=== PATIENT | female | born 1965 | race Caucasian/White ===

== ENCOUNTER 2017-07-05 14:43 | Emergency (ER) | payer MEDICARE, MEDICAID ==
[~2017-07-05] VITALS: Ht 154.9 cm; Wt 47.6 kg
[~2017-07-05 14:43] MED LIST: ACET500C4 PO; ALBU8HFA4 INH; METR500T4; TERC45CR3
[2017-07-05] MEDS ORDERED: FLUTICASONE PROP 50 MCG SPRAY NS (15:05)
[2017-07-05] MEDS ORDERED: IBUPROFEN 800 MG TABLET PO (15:05)
[2017-07-05] MEDS ORDERED: IPRATROPIUM 0.06% SPRAY NS (15:05)
[2017-07-05] MEDS ORDERED: PANTOPRAZOLE SOD DR 40 MG TAB PO (15:05)
[2017-07-05] MEDS ORDERED: SYMBICORT 160-4.5 MCG INHALER IH (15:05)
[2017-07-05] MEDS ORDERED: BENZONATATE 100 MG CAPSULE PO ONE (15:30)
[2017-07-05] MEDS ORDERED: ALBUTEROL SULFATE 2.5 MG/3 ML NEBU NEB ONE (15:30)
--- NOTE | 2017-07-05 15:31 | NUR ---
52 YEARS OLD FEMALE WALK-IN TO ER C/O COUGH PO MED GIVEN PRESCRIBED, RT AT BEDSIDE FOR NEB TX.
[2017-07-05] MEDS ORDERED: BENZONATATE 100 MG CAPSULE ONE ×2 (15:43→15:46)
[2017-07-05] MEDS ORDERED: ALBUTEROL SULFATE 2.5 MG/3 ML NEBU ONE (15:44)
[2017-07-05] MEDS ORDERED: ALBUTEROL SULFATE 2.5 MG/ 0.5 ML NEBU ONE (15:45)
--- NOTE | 2017-07-05 16:54 | NUR ---
PT CONDITION IMPROVED D/C HOME WITH PRESCRIPTION AFTER CARE REVIEWED UNDERSTOOD LEFT ER VIA SELF ALERT, ORIENTED X4 AMBULATORY WITH STEADY GAIT.
[2017-07-05 16:58] VITALS: BP 128/70
== END 2017-07-05 16:59 | disposition home or self-care (01) ==
LOC: ER 14:43
DX: J44.1 Chronic obstructive pulmonary disease with (acute) exacerbation (principal); F41.9 Anxiety disorder, unspecified; F32.9 Major depressive disorder, single episode, unspecified; F17.200 Nicotine dependence, unspecified, uncomplicated
CPT/HCPCS: A4663

== ENCOUNTER 2018-03-20 15:47 | Emergency (ER) | payer MEDICARE, MEDICAID ==
[~2018-03-20] VITALS: Ht 154.9 cm; Wt 47.6 kg
[~2018-03-20 15:47] MED LIST changes: +FLUTICASONE PROP 50 MCG SPRAY NS; +IBUPROFEN 800 MG TABLET PO; +IPRATROPIUM 0.06% SPRAY NS; -METR500T4; +PANTOPRAZOLE SOD DR 40 MG TAB PO; +SYMBICORT 160-4.5 MCG INHALER IH
--- NOTE | 2018-03-20 16:10 | NUR ---
Patient discharged to home in stable conditon. Written and verbal after care instructions given. Patient verbalizes understanding of instructions.
== END 2018-03-20 16:30 | disposition home or self-care (01) ==
LOC: ER 15:49
DX: J40 Bronchitis, not specified as acute or chronic (principal); J45.909 Unspecified asthma, uncomplicated; F17.200 Nicotine dependence, unspecified, uncomplicated
CPT/HCPCS: A4663

== ENCOUNTER 2018-06-11 11:53 | Emergency (ER) | payer MEDICARE, MEDICAID ==
[~2018-06-11] VITALS: Ht 154.9 cm; Wt 47.2 kg
[2018-06-11] MEDS ORDERED: APRE30TA2 PO (12:04)
--- NOTE | 2018-06-11 12:41 | NUR ---
is at bedside doing the MSE, pending orders@this time.
[2018-06-11 13:12] LABS: BASOPHILS # (AUTO) 0.1 K/uL (0.0-8.0); BASOPHILS % (AUTO) 0.8 % (0.0-2.0); EOSINOPHILS # (AUTO) 0.2 K/uL (0.0-0.7); EOSINOPHILS % (AUTO) 1.8 % (0.0-7.0); HEMATOCRIT 41.1 % (31.2-41.9); HEMOGLOBIN 13.2 g/dL (10.9-14.3); LYMPHOCYTES % (AUTO) 17.8 % (20.5-51.5); MEAN CORPUSCULAR HEMOGLOBIN 23.4 uug (24.7-32.8); MEAN CORPUSCULAR HGB CONC 32 g/dL (32.3-35.6); MEAN CORPUSCULAR VOLUME 72.6 fL (75.5-95.3); MONOCYTES # (AUTO) 0.5 K/uL (2.0-10.0); NEUTROPHILS # (AUTO) 8.6 K/uL (1.8-8.9); NEUTROPHILS % (AUTO) 75.6 % (38.5-71.5); PLATELET COUNT (AUTO) 373 K/uL (179-408); RED BLOOD CELL COUNT(AUTO) 5.65 MIL/uL (3.63-4.92); WHITE BLOOD COUNT (AUTO) 11.3 K/uL (3.8-11.8)
[2018-06-11 13:18] LABS: *BILIRUBIN,URIN NEGATIVE (NEGATIVE); *BLOOD, URINE NEGATIVE (NEGATIVE); *CLARITY,URINE CLEAR (CLEAR); *COLOR,URINE YELLOW (YELLOW); *KETONES,URINE NEGATIVE (NEGATIVE); *PROTEIN,URINE NEGATIVE (NEGATIVE); *UROBILINOGEN,URINE 0.2 E.U./dl (NORMAL); LEUKOCYTE ESTERASE ,URINE NEGATIVE (NEGATIVE); NITRITE, URINE NEGATIVE (NEGATIVE); PH,URINE 6.5 (5.0-8.0); UGLUCOSE NEGATIVE (NEGATIVE)
[2018-06-11 13:20] LABS: CREATININE 0.6 mg/dL (0.6-1.3); POTASSIUM 4.2 mmol/L (3.5-5.1)
[2018-06-11 13:21] LABS: BACTERIA,URINE FEW /HPF (NONE SEEN); RBC,URINE 0-3 /HPF (0-3); SQUAMOUS EPITHELIAL CELL,UR MODERATE /HPF (NONE SEEN); WBC,URINE 0-3 /HPF (0-3)
[2018-06-11 13:27] LABS: BILIRUBIN,DIRECT 0.1 mg/dL (0.0-0.2); BILIRUBIN,TOTAL 0.6 mg/dL (0.2-1.0); TOTAL PROTEIN, SERUM 7.2 g/dL (6.4-8.2)
--- NOTE | 2018-06-11 14:28 | NUR ---
Patient discharged to home in stable conditon & steady gait. Written and verbal after care instructions given to patient. Patient verbalizes understanding of instructions.
== END 2018-06-11 14:31 | disposition home or self-care (01) ==
LOC: ER 11:59
DX: R10.12 Left upper quadrant pain (principal); J45.909 Unspecified asthma, uncomplicated; J44.9 Chronic obstructive pulmonary disease, unspecified; F17.200 Nicotine dependence, unspecified, uncomplicated; Z79.51 Long term (current) use of inhaled steroids; Z79.899 Other long term (current) drug therapy
CPT/HCPCS: 36415; 70030-TC; 83690; 85025; 93005; A4663